=== PATIENT | male | born 1955 | race Caucasian/White ===

== ENCOUNTER → 2017-07-15 | Outpatient (CLI) | payer BC ==
--- NOTE | 2017-07-15 11:06 | RADIOLOGY REPORT (SQ) ---
EXAM DESCRIPTION: MRI LUMBAR SPINE COMBO COMPLETED DATE/TIME: 07/15/2017 8:57 am REASON FOR STUDY: LOW BACK PAIN M54.16 RADICULOPATHY, LUMBAR REGION M54.5 LOW BACK PAIN COMPARISON: MRI thoracic spine without contrast 03/22/2014 Lumbar spine plain films 12/10/2011 TECHNIQUE: Sagittal and Axial imaging includes T1, T1 post gadolinium, T2, STIR and gradient echo se quences. Coronal T2/HASTE imaging. CONTRAST TYPE AND DOSE: 20 mL Multihance. RENAL FUNCTION: GFR > 60. LIMITATIONS: None. FINDINGS: VISUALIZED UPPER ABDOMEN: Limited evaluation. No acute or suspicious findings suggested. SEGMENTATION: No transitional anatomy. The lowest well-developed disc space is labeled L5-S1. ALIGNMENT: There is minimal grade 1 anterolisthesis of L2 over L3. This is new compared to 2011. VERTEBRAE: Intact. No fractures. BONE MARROW: Mild fatty reactive vertebral body endplate changes at L5-S1, benign hemangioma in the L 1 vertebral body. DISC SIGNAL: Decreased T2 weighted intervertebral disc signal with disc space loss of height from L2- 3 through L5-S1. POSTERIOR ELEMENTS: Old right laminectomy at L2-3 HARDWARE: None in the spine. CORD AND CONUS: Normal in size and signal intensity. Conus at the L1 level. SOFT TISSUES: No aortic aneurysm seen. No bulky retroperitoneal adenopathy or mass. No paraspinal mas s or fluid. T11-12: At the upper edge of the field of view. Mild bilateral facet hypertrophy. No significant c entral or foraminal encroachment. T12-L1: No central or foraminal stenosis. L1-L2: Moderate bilateral facet hypertrophy. Mild posterior disc bulging. Borderline central canal narrowing. No significant foraminal stenosis. L2-L3: Grade 1 anterolisthesis of L2 over L3 is present. There is broad diffuse posterior disc bulge and moderate bilateral facet and ligament hypertrophy causing mild central canal stenosis with camille ening of the thecal sac into a triangular shape. Enhancing right laminectomy defect. These changes are best shown on axial image 12. There is mild bilateral inferior foraminal narrowing without exiti ng L2 nerve root impingement. L3-L4: Moderate central canal stenosis results from broad diffuse posterior disc bulge and bony spurr ing and very bulky bilateral facet and ligament hypertrophy. This is best shown on axial image 18. Mild bilateral foraminal narrowing is present without definite exiting L3 nerve root impingement. L4-L5: Broad diffuse posterior disc bulging, moderate bilateral facet and ligament hypertrophy. No c entral stenosis. Mild bilateral inferior foraminal narrowing without exiting L4 nerve root impingeme nt. L5-S1: Broad diffuse posterior disc bulge and bony spurring is present with moderate bilateral facet and ligament hypertrophy. No central stenosis. Mild bilateral foraminal narrowing. SACRUM: Visualized upper sacrum intact. ENHANCEMENT: There is enhancing granulation tissue along the right laminectomy defect at L2-3. No ab normal nerve root enhancement. OTHER: No other significant findings. IMPRESSION: Diffuse degenerative changes as above. TECHNICAL DOCUMENTATION: JOB ID: [id number] [email or web address]- All Rights Reserved
== END ==
LOC: RAD 07:50
PROVIDERS: ATTEND Neurological Surgery
DX: M54.16 Radiculopathy, lumbar region (principal); M54.5 Low back pain
CPT/HCPCS: 82565; 72158; A9577

== ENCOUNTER → 2017-09-10 | Outpatient (CLI) | payer BC ==
--- NOTE | 2017-09-10 15:29 | RADIOLOGY REPORT (SQ) ---
EXAM DESCRIPTION: L SPINE W/FLEX/EXT COMPLETED DATE/TIME: 09/10/2017 2:00 pm REASON FOR STUDY: SPONDYLOLISTHESIS, LUMBAR REGION (M43.16) M43.16 SPONDYLOLISTHESIS, LUMBAR REGION COMPARISON: 12/10/2011 NUMBER OF VIEWS: Seven views. TECHNIQUE: AP, lateral, obliques, flexion, extension, and sacral radiographic images acquired. LIMITATIONS: None. FINDINGS: MINERALIZATION: Normal. SEGMENTATION: Normal. No transitional anatomy. ALIGNMENT: Minimal grade 1 anterolisthesis of L2 over L3, which is unchanged between flexion neutral and extension. FLEXION/EXTENSION: No instability. VERTEBRAE: Maintained height. No fracture or worrisome bone lesion. DISCS: Diffuse disc space loss of height most pronounced at L2-3, L3-4, and L5-S1 POSTERIOR ELEMENTS: Pedicles and facets are intact. No pars defect or posterior arch defects. Diffu se bilateral facet arthropathy. HARDWARE: None in the spine. PARASPINAL SOFT TISSUES: Normal. PELVIS: Incompletely included in the field of view. SI joints unremarkable OTHER: No other significant finding. IMPRESSION: Diffuse degenerative disc changes and facet arthropathy Minimal grade 1 anterolisthesis of L2 over L3, stable between neutral, flexion, and extension images TECHNICAL DOCUMENTATION: JOB ID: [id number]- All Rights Reserved
== END ==
LOC: RAD 13:38
PROVIDERS: ATTEND Pain Medicine Pain Medicine
DX: M43.16 Spondylolisthesis, lumbar region (principal)
CPT/HCPCS: 72114

== ENCOUNTER → 2018-02-27 | Outpatient (CLI) | payer BC ==
--- NOTE | 2018-02-28 09:27 | RADIOLOGY REPORT (SQ) ---
EXAM DESCRIPTION: MRI LUMBAR SPINE WITHOUT COMPLETED DATE/TIME: 02/27/2018 4:44 pm REASON FOR STUDY: SPINAL STENOSIS, LUMBAR M48.061 SPINAL STENOSIS, LUMBAR REGION WITHOUT NEUROGENIC CL COMPARISON: 07/15/2017 TECHNIQUE: Sagittal and Axial imaging includes T1, T2, STIR and gradient echo sequences. Coronal T2/ HASTE imaging. LIMITATIONS: Motion. FINDINGS: VISUALIZED UPPER ABDOMEN: Limited evaluation. No acute or suspicious findings suggested. SEGMENTATION: No transitional anatomy. The lowest well-developed disc space is labeled L5-S1. ALIGNMENT: Grade 1 anterolisthesis L2 relative to L3. VERTEBRAE: Intact. BONE MARROW: Chronic endplate changes L5-S1. DISC SIGNAL: Desiccation multiple levels. POSTERIOR ELEMENTS: Intact. HARDWARE: None in the spine. CORD AND CONUS: Normal in size and signal intensity. Conus at the appropriate level. SOFT TISSUES: No aortic aneurysm seen. No bulky retroperitoneal adenopathy or mass. No paraspinal mas s or fluid. L1-L2: Mild spinal stenosis due to facet arthropathy. L2-L3: Moderate spinal stenosis due to disc bulge malalignment and facet arthropathy. Lateral recess stenosis. L3-L4: Moderate spinal stenosis due to disc osteophyte complex and facet arthropathy. Lateral recess stenosis. L4-L5: Minimal narrowing of the spinal canal due to disc bulge. L5-S1: Broad-based disc bulge. Disc contacts both exiting L5 nerve roots in the neural foramina. LOWER THORACIC: Incompletely imaged. No stenosis seen. SACRUM: Visualized upper sacrum intact. OTHER: No other significant findings. IMPRESSION: Spondylosis, facet arthropathy and malalignment. Moderate spinal stenosis L2-3 and L3-4 . No significant change. TECHNICAL DOCUMENTATION: JOB ID: [id number]- All Rights Reserved Reading location - IP/workstation name: Unknown
== END ==
LOC: RAD 15:22
PROVIDERS: ATTEND Neurological Surgery
DX: M48.061 Spinal stenosis, lumbar region without neurogenic claudication (principal)
CPT/HCPCS: 72148

== ENCOUNTER 2020-05-14 14:54 | Emergency (ER) | payer MEDICARE, OTHER ==
[2020-05-14] MEDS ORDERED: LIDOCAINE 2% INJ (20 MG/ML) 20 ML MDV ONE (15:03)
[2020-05-14] MEDS ORDERED: DIPH/PERTUSS(ACELL)/TETANUS VAC/PF 0.5 ML SYR (>=10YO) IM ONE (15:11)
--- NOTE | 2020-05-14 15:19 | ER Document Report ---
ED General - General Chief Complaint: Laceration Stated Complaint: FINGER LACERATION/CUT FINGER OFF Primary Care Provider: MARKOS MCCALL DO [ACTIVE STAFF] - Follow up as needed Notes: 65-year-old man presents to the emergency department with injury to the left middle finger. Apparently he was using a skill saw and accidentally cut himself. He has avulsed tissue from the from the palm surface of the finger through the distal phalanx. There is a slight injury to the lateral aspect of the fourth finger nail at the tip. TRAVEL OUTSIDE OF THE [place] IN LAST 30 DAYS: No - Related Data Allergies/Adverse Reactions: Sulfa (Sulfonamide Antibiotics) Allergy (Unknown, Verified 05/14/20 15:06) ? childhood reaction Home Medications: requip, lipitor, tizanidine, furosemide, diazepam, vitamin d, aspirin, naproxen, oxycodone Past Medical History - Social History Smoking Status: Never Smoker Frequency of alcohol use: None Drug Abuse: None Family History: Reviewed & Not Pertinent - Past Medical History Cardiac Medical History: Reports: Hx Hypercholesterolemia Denies: Hx Coronary Artery Disease, Hx Heart Attack, Hx Hypertension Pulmonary Medical History: Denies: Hx Asthma, Hx Bronchitis, Hx COPD, Hx Pneumonia Neurological Medical History: Denies: Hx Cerebrovascular Accident, Hx Seizures Musculoskeletal Medical History: Denies Hx Arthritis Past Surgical History: Reports: Hx Herniorrhaphy, Hx Orthopedic Surgery - r knee, nose. Denies: Hx Pacemaker - Immunizations Immunizations up to date: No Hx Diphtheria, Pertussis, Tetanus Vaccination: No Review of Systems - Review of Systems Notes: Constitutional: Negative for fever. HENT: Negative for sore throat. Eyes: Negative for visual changes. Cardiovascular: Negative for chest pain. Respiratory: Negative for shortness of breath. Gastrointestinal: Negative for abdominal pain, vomiting or diarrhea. Genitourinary: Negative for dysuria. Musculoskeletal: + Laceration left middle finger Skin: Negative for rash. Neurological: Negative for headaches, weakness or numbness. 10 point ROS negative except as marked above and in HPI. Physical Exam - Vital signs Vitals: BP 156/97 H 05/14/20 15:00 - Notes Notes: PHYSICAL EXAMINATION: Physical Exam: General: Well-nourished well-developed in no acute distress HEENT: NC/AT, pupils equal round and reactive to light, MM moist,nares clear, oropharynx clear, airway patent Neck: supple, no adenopathy, no masses. Good range of motion Lungs: clear, no wheezing, no rales no rhonchi CVS: Regular rate and rhythm no murmur gallop or rub Abdomen: Soft, active, nontender, no masses, no hepatosplenomegaly Ext: Left middle finger with avulsion injury extending from the middle phalanx to the tip of the finger. Loss of tissue with skin flap at the lateral aspect of the phalanx 2 areas of laceration with loose tissue, approximately 4 cm on each side. There are areas of missing tissue noted. Neuro: Alert and responsive, moving all 4 extremities on command, cranial nerves intact, no focal findings Skin: Intact no open lesions, no rash PSYCH: Normal mood, normal affect. Course - Re-evaluation Re-evalutation: 05/14/20 17:12 Patient presents with a partial amputation of his left middle finger, injured on a skill saw. I have contacted the orthopedist, Dr. Hubbard. He has reviewed the x-rays and stated that the loose tissue should be pulled together and a dressing applied to the hand. The patient will be put on antibiotics and medications for pain and he will follow-up with the orthopedist on Saturday at the office, Dr Mccall.. Patient tolerated the procedure well, 15 sutures were used to approximate the skin flap to the left middle finger. 05/14/20 17:20 - Vital Signs Vital signs: Temp Pulse Resp BP Pulse Ox 97.6 F 79 18 150/89 H 99 05/14/20 15:02 05/14/20 15:02 05/14/20 17:31 05/14/20 17:31 05/14/20 17:31 Procedures - Laceration/Wound Repair Left Finger Time completed: 17:10 Wound length (cm): 8 Wound's Depth, Shape: Irregular, Flap Laceration pre-procedure: Chloraprep applied, Sterile drapes applied Anesthetic type: 2% Lidocaine Volume Anesthetic (mLs): 5 Wound explored: Contaminated Irrigated w/ Saline (mLs): 15 Wound Debrided: Minimal Wound Repaired With: Sutures Suture Size/Type: 5:0, Vicryl, 4:0 Number of Sutures: 15 Post-procedure wound care: Sterile dressing applied, Sling applied Post-procedure NV exam normal: Yes Complications: No Discharge - Discharge Clinical Impression: Partial traumatic amputation of left middle finger through phalanx Qualifiers: Encounter type: initial encounter Qualified Code(s): S68.623A - Partial traumatic transphalangeal amputation of left middle finger, initial encounter Condition: Good Disposition: HOME, SELF-CARE Instructions: Laceration Care ([facility]), Oral Narcotic Medication ([facility]), Prophylactic Antibiotic ([facility]) Additional Instructions: You were seen in emergency department today with a partial amputation of the left middle finger. Please leave the bulky dressing in place until Saturday at which time you will be seen by an orthopedist for a more definitive repair. Use the medications as prescribed [place], Keflex. You may also wear the sling, keep the hand elevated. If you are noticing complications or other concerns you may return to the emergency department for reevaluation if needed. HOME CARE INSTRUCTIONS & INFORMATION: Thank you for choosing us for your medical needs. We hope you're satisfied with the care you received. After you leave, you must properly care for your problem and, at the same time, observe its progress. Any condition can change. Some illnesses can change rapidly over hours or days. If your condition worsens, return to the Emergency Department or see your physician promptly. ABOUT YOUR X-RAYS AND EKG'S: If you had an EKG or X-rays taken, they have been read by the Emergency Physician. The X-rays and EKG's will also be read by a Radiologist or Pharmacy Data Analyst within 24 hours. If discrepancies are noted, you will be notified by telephone. Please be certain the ED has a correct telephone number & address where you can be reached. Also, realize that some fractures or abnormalities do not show up on initial X-rays. If your symptoms continue, see your physician. ABOUT YOUR LABORATORY TEST: If you had laboratory tests, the results have been reviewed by the Emergency Physician. Some test results (for example cultures) may not be available for several days. You will be contacted if any test result shows you need additional treatment. Please be certain the ED has a correct telephone number and address where you can be reached. ABOUT YOUR MEDICATIONS: You will receive instructions on how to take your medicine on the prescription label you receive. Additional information may be provided by the Pharmacy. If you have questions afterwards, call the ED for clarification or further instructions. Some prescribed medications may cause drowsiness. Do not perform tasks such as driving a car or operating machinery without consulting your Pharmacist. If you feel you need a refill of pain medication, your condition will need re-evaluation. Please do not call for a refill of any medication. ABOUT YOUR SIGNATURE: Signature of this document acknowledges to followin. Understanding that you received emergency treatment and that you may be released before al medical problems are known or treated. Please be certain the ED has a correct phone number & address where you can be reached. 2. Acknowledgement that you will arrange for follow-up care as recommended. 3. Authorization for the Emergency Physician to provide information to your follow-up Physician in order to maximize your care. AT ANY TIME, IF YOUR SYMPTOMS CHANGE SIGNIFICANTLY OR WORSEN OR YOU DEVELOP NEW SYMPTOMS, RETURN TO THE EMERGENCY DEPARTMENT IMMEDIATELY FOR RE-EVALUATION. OUR GOAL IS TO PROVIDE EXCELLENT MEDICAL CARE! WE HOPE THAT WE HAVE MET YOUR EXPECTATIONS DURING YOUR EMERGENCY DEPARTMENT VISIT AND THAT YOU FEEL YOU HAVE RECEIVED EXCELLENT CARE! Prescriptions: Cephalexin Monohydrate [Keflex 500 mg Capsule] 500 mg PO Q8 10 Days #30 capsule Hydrocodone/Acetaminophen [[place] 5-325 mg Tablet] 1 tab PO Q6 PRN #10 tablet PRN Reason: Referrals: MARKOS MCCALL DO [ACTIVE STAFF] - Follow up as needed
[2020-05-14] MEDS ORDERED: CEFAZOLIN INJ 1 GM VIAL IV ONE (15:30)
--- NOTE | 2020-05-14 15:50 | RADIOLOGY REPORT (SQ) ---
EXAM DESCRIPTION: HAND LEFT 2 VIEWS IMAGES COMPLETED DATE/TIME: 05/14/2020 2:21 pm REASON FOR STUDY: amputation of finger tip. COMPARISON: None. EXAM PARAMETERS: NUMBER OF VIEWS: Three views. TECHNIQUE: AP, lateral and oblique radiographic images acquired of the left hand. LIMITATIONS: None. FINDINGS: MINERALIZATION: Normal. BONES: There is amputation of the distal phalanx 3rd digit. Intra-articular fracture of the remainin g portion of the distal phalanx. There is also a comminuted fracture of the distal aspect middle pha lanx 3rd digit. Large overlying skin ulceration. No radiopaque foreign body. Remaining bones are i ntact with mild osteoarthritis of the DIP and PIP joints. JOINTS: No effusions. SOFT TISSUES: Large laceration of the distal volar surface 3rd digit. No radiopaque foreign body. OTHER: No other significant finding. IMPRESSION: Amputation and large laceration of the distal tip of the 3rd digit with loss of the parvin rity of the distal phalanx. Residual distal phalanx demonstrates an intra-articular fracture. There is fracture/destructive appearance of the distal aspect middle phalanx 3rd digit. TECHNICAL DOCUMENTATION: JOB ID: [id number] [email or web address]- All Rights Reserved Reading location - IP/workstation name: [email or web address]
[2020-05-14 17:42] VITALS: BP 150/89
== END 2020-05-14 17:38 | disposition home or self-care (01) ==
LOC: ER 14:54
DX: S68.623A Partial traumatic transphalangeal amputation of left middle finger, initial encounter (principal); W29.8XXA Contact with other powered hand tools and household machinery, initial encounter; E78.00 Pure hypercholesterolemia, unspecified; Z79.899 Other long term (current) drug therapy; Z23 Encounter for immunization; Z79.82 Long term (current) use of aspirin; Z79.52 Long term (current) use of systemic steroids; Z79.891 Long term (current) use of opiate analgesic; Z88.2 Allergy status to sulfonamides
CPT/HCPCS: 99283; 90471; 96365; 73120; 90715; 12004; J3490; J0690

== ENCOUNTER 2020-05-15 11:10 | Emergency (ER) | payer MEDICARE, OTHER ==
[2020-05-15 11:16] VITALS: BP 139/76
--- NOTE | 2020-05-15 11:25 | ER Document Report ---
ED Medical Screen (RME) - General Chief Complaint: Wound Recheck Stated Complaint: WOUND RECHECK Time Seen by Provider: 05/15/20 11:20 Mode of Arrival: Wheelchair Information source: Patient Notes: 65-year-old male presented to ED for pain and bleeding to his left finger. He presented yesterday with a table saw injury to the finger and half of his finger lengthwise was cut off. He states last night he hit it on the headboard and has not been able to make it stop bleeding since then. There is bloody drainage on it at this time. I have spoken with the charge nurse and will take him back to her room to be reevaluated. I have greeted and performed a rapid initial assessment of this patient. A comprehensive ED assessment and evaluation of the patient, analysis of test results and completion of medical decision making process will be conducted by an additional ED providers. TRAVEL OUTSIDE OF THE [place] IN LAST 30 DAYS: No - Related Data Allergies/Adverse Reactions: Sulfa (Sulfonamide Antibiotics) Allergy (Unknown, Verified 05/15/20 11:16) ? childhood reaction Past Medical History - Past Medical History Cardiac Medical History: Reports: Hx Hypercholesterolemia Denies: Hx Coronary Artery Disease, Hx Heart Attack, Hx Hypertension Pulmonary Medical History: Denies: Hx Asthma, Hx Bronchitis, Hx COPD, Hx Pneumonia Neurological Medical History: Denies: Hx Cerebrovascular Accident, Hx Seizures Musculoskeltal Medical History: Denies Hx Arthritis Past Surgical History: Reports: Hx Herniorrhaphy, Hx Orthopedic Surgery - r knee, nose. Denies: Hx Pacemaker - Immunizations Immunizations up to date: No Hx Diphtheria, Pertussis, Tetanus Vaccination: No Physical Exam - Vital signs Vitals: Temp Pulse Resp BP Pulse Ox 97.8 F 70 20 139/76 H 99 05/15/20 11:14 05/15/20 11:14 05/15/20 11:14 05/15/20 11:14 05/15/20 11:14 Course - Vital Signs Vital signs: Temp Pulse Resp BP Pulse Ox 97.8 F 70 20 139/76 H 99 05/15/20 11:14 05/15/20 11:14 05/15/20 11:14 05/15/20 11:14 05/15/20 11:14
--- NOTE | 2020-05-15 11:53 | ER Document Report ---
ED Wound - General Chief Complaint: Laceration Stated Complaint: WOUND RECHECK Time Seen by Provider: 05/15/20 11:20 Mode of Arrival: Wheelchair Notes: 65-year-old man history of partial amputation to his left middle finger. This morning he was in bed and accidentally bumped the finger against the headboard of the bed. He notes that it began bleeding and bled through the dressing. He denies any other associated symptoms. TRAVEL OUTSIDE OF THE [place] IN LAST 30 DAYS: No - Related Data Allergies/Adverse Reactions: Sulfa (Sulfonamide Antibiotics) Allergy (Unknown, Verified 05/15/20 11:16) ? childhood reaction Past Medical History - General Information source: Patient - Social History Smoking Status: Never Smoker Family History: Reviewed & Not Pertinent Patient has homicidal ideation: No - Past Medical History Cardiac Medical History: Reports: Hx Hypercholesterolemia Denies: Hx Coronary Artery Disease, Hx Heart Attack, Hx Hypertension Pulmonary Medical History: Denies: Hx Asthma, Hx Bronchitis, Hx COPD, Hx Pneumonia Neurological Medical History: Denies: Hx Cerebrovascular Accident, Hx Seizures Musculoskeletal Medical History: Denies Hx Arthritis Past Surgical History: Reports: Hx Herniorrhaphy, Hx Orthopedic Surgery - r knee, nose. Denies: Hx Pacemaker - Immunizations Immunizations up to date: No Hx Diphtheria, Pertussis, Tetanus Vaccination: No Review of Systems - Review of Systems Notes: Constitutional: Negative for fever. HENT: Negative for sore throat. Eyes: Negative for visual changes. Cardiovascular: Negative for chest pain. Respiratory: Negative for shortness of breath. Gastrointestinal: Negative for abdominal pain, vomiting or diarrhea. Genitourinary: Negative for dysuria. Musculoskeletal: + Bleeding left middle finger Skin: Negative for rash. Neurological: Negative for headaches, weakness or numbness. 10 point ROS negative except as marked above and in HPI. Physical Exam - Vital signs Vitals: Temp Pulse Resp BP Pulse Ox 97.8 F 70 20 139/76 H 99 05/15/20 11:14 05/15/20 11:14 05/15/20 11:14 05/15/20 11:14 05/15/20 11:14 - Notes Notes: PHYSICAL EXAMINATION: Physical Exam: General: Well-nourished well-developed 65-year-old L in no acute distress HEENT: NC/AT, pupils equal round and reactive to light, MM moist,nares clear, oropharynx clear, airway patent Neck: supple, no adenopathy, no masses. Good range of motion Lungs: clear, no wheezing, no rales no rhonchi CVS: Regular rate and rhythm no murmur gallop or rub Abdomen: Soft, active, nontender, no masses, no hepatosplenomegaly Ext: Bleeding from the distal open wound of the left third finger partial amputation. Neuro: Alert and responsive, moving all 4 extremities on command, cranial nerves intact, no focal findings Skin: Intact no open lesions, no rash PSYCH: Normal mood, normal affect. Course - Re-evaluation Re-evalutation: 05/15/20 11:50 Quick clot was applied to the area of bleeding, a new dressing was applied, the patient was watched in the emergency department for short period bleeding is controlled and he is being discharged home. His follow-up is with orthopedics tomorrow as previously planned. - Vital Signs Vital signs: Temp Pulse Resp BP Pulse Ox 97.8 F 70 20 139/76 H 99 05/15/20 11:14 05/15/20 11:14 05/15/20 11:14 05/15/20 11:14 05/15/20 11:14 Discharge - Discharge Clinical Impression: Bleeding from finger Partial traumatic amputation of left middle finger through phalanx Qualifiers: Encounter type: sequela Qualified Code(s): S68.623S - Partial traumatic transphalangeal amputation of left middle finger, sequela Condition: Good Disposition: HOME, SELF-CARE Additional Instructions: You were seen in the emergency department today with bleeding from the wound site of the left middle finger partial amputation. Please wear your sling and please take care to avoid hitting the finger. Please follow-up with orthopedist as previously planned. HOME CARE INSTRUCTIONS & INFORMATION: Thank you for choosing us for your medical needs. We hope you're satisfied with the care you received. After you leave, you must properly care for your problem and, at the same time, observe its progress. Any condition can change. Some illnesses can change rapidly over hours or days. If your condition worsens, return to the Emergency Department or see your physician promptly. ABOUT YOUR X-RAYS AND EKG'S: If you had an EKG or X-rays taken, they have been read by the Emergency Physician. The X-rays and EKG's will also be read by a Radiologist or Meteorological Observer within 24 hours. If discrepancies are noted, you will be notified by telephone. Please be certain the ED has a correct telephone number & address where you can be reached. Also, realize that some fractures or abnormalities do not show up on initial X-rays. If your symptoms continue, see your physician. ABOUT YOUR LABORATORY TEST: If you had laboratory tests, the results have been reviewed by the Emergency Physician. Some test results (for example cultures) may not be available for several days. You will be contacted if any test result shows you need additional treatment. Please be certain the ED has a correct telephone number and address where you can be reached. ABOUT YOUR MEDICATIONS: You will receive instructions on how to take your medicine on the prescription label you receive. Additional information may be provided by the Pharmacy. If you have questions afterwards, call the ED for clarification or further instructions. Some prescribed medications may cause drowsiness. Do not perform tasks such as driving a car or operating machinery without consulting your Pharmacist. If you feel you need a refill of pain medication, your condition will need re-evaluation. Please do not call for a refill of any medication. ABOUT YOUR SIGNATURE: Signature of this document acknowledges to followin. Understanding that you received emergency treatment and that you may be released before al medical problems are known or treated. Please be certain the ED has a correct phone number & address where you can be reached. 2. Acknowledgement that you will arrange for follow-up care as recommended. 3. Authorization for the Emergency Physician to provide information to your follow-up Physician in order to maximize your care. AT ANY TIME, IF YOUR SYMPTOMS CHANGE SIGNIFICANTLY OR WORSEN OR YOU DEVELOP NEW SYMPTOMS, RETURN TO THE EMERGENCY DEPARTMENT IMMEDIATELY FOR RE-EVALUATION. OUR GOAL IS TO PROVIDE EXCELLENT MEDICAL CARE! WE HOPE THAT WE HAVE MET YOUR EXPECTATIONS DURING YOUR EMERGENCY DEPARTMENT VISIT AND THAT YOU FEEL YOU HAVE RECEIVED EXCELLENT CARE!
== END 2020-05-15 12:10 | disposition home or self-care (01) ==
LOC: ER 11:10
DX: S68.623S Partial traumatic transphalangeal amputation of left middle finger, sequela (principal); W22.8XXA Striking against or struck by other objects, initial encounter; Z89.022 Acquired absence of left finger(s); Z88.2 Allergy status to sulfonamides
CPT/HCPCS: 99282